=== PATIENT | female | born 1930 | race Caucasian/White ===

== ENCOUNTER 2021-01-12 14:01 | Inpatient (IN) | payer MEDICARE, BC ==
[2021-01-12] MEDS ORDERED: Ondansetron PF 4 MG/2 ML Vial IVP PRN (19:14)
[2021-01-12] MEDS ORDERED: Dextrose 5% in Water 1,000 ML IV PRN (19:14)
[2021-01-12] MEDS ORDERED: Calcium Carbonate 500 MG ChewTAB PO PRN (19:14)
[2021-01-12] MEDS ORDERED: Dextrose 50% Abboject 50 ML SYRINGE SLOW IVP PRN (19:14)
[2021-01-12] MEDS ORDERED: HumaLOG 300 UNITS/3 ML VIAL SC PRN ×2 (19:18)
[2021-01-12 19:29] VITALS: BMI 21.3
[2021-01-12] MEDS ORDERED: Digoxin 0.25 MG TAB PO SCH (19:45)
[2021-01-12] MEDS ORDERED: Albuterol 200 PUFF (6.7GM INHALER) INH PRN (19:48)
[2021-01-12 21:04] LABS: Free T4 (Free Thyroxine) 1.11 ng/dL (0.70-1.48)
[2021-01-12] MEDS: Atorvastatin Calcium 10 MG TAB PO SCH (21:05)
[2021-01-12] MEDS: Digoxin 0.25 MG TAB PO SCH (21:06)
[2021-01-13] MEDS ORDERED: hydrALAZINE 20 MG/ML VIAL SLOW IVP PRN (00:16)
[2021-01-13] MEDS ORDERED: Carvedilol 6.25 MG TAB PO SCH (00:30)
[2021-01-13] MEDS ORDERED: diphenhydrAMINE 25 MG CAP PO SCH (00:30)
[2021-01-13 04:38] LABS: Albumin 3.5 g/dL (3.4-4.8)
[2021-01-13 04:39] LABS: Chloride 87 mmol/L (98-107); Potassium 4.4 mmol/L (3.5-5.1); Sodium 126 mmol/L (136-145)
[2021-01-13 04:40] LABS: Calcium 8.6 mg/dL (7.8-10.44); Glucose 143 mg/dL (83-110)
[2021-01-13 04:41] LABS: Globulin 3.1 g/dL (2.4-3.5); Protein, Total 6.6 g/dL (5.8-8.1)
[2021-01-13 04:42] LABS: Bilirubin, Total 0.7 mg/dL (0.2-1.2); Carbon Dioxide 27 mmol/L (23-31)
[2021-01-13 04:44] LABS: Calc. Creatinine Clearance 40 mL/min (70-130)
[2021-01-13 04:45] LABS: BUN (Urea Nitrogen) 13 mg/dL (9.8-20.1)
[2021-01-13 04:46] LABS: ALT (SGPT) 19 U/L (8-55); AST (SGOT) 33 U/L (5-34)
[2021-01-13 04:48] LABS: Anion Gap 16 mmol/L (10-20)
[2021-01-13 04:57] LABS: Alkaline Phosphatase 78 U/L (40-110)
[2021-01-13 05:11] LABS: #Eosinphils 0.1 thou/uL (0.0-0.7); #Lymphocytes 0.7 thou/uL (1.20-3.40); #Neutrophils 10.9 thou/uL (1.40-6.50); %Basophils 0.1 % (0.0-1.0); %Eosinophils 0.4 % (0.0-10.0); %Lymphocytes 5.3 % (21.0-51.0); %Monocytes 7.6 % (0.0-10.0); %Neutrophils 86.6 % (42.0-75.0); Anisocytosis SLIGHT = 6-15 cells (100X) (0-5/hpf); Elliptocytes SLIGHT = 2-5 cells (100X) (0-1/hpf); Hemoglobin 10.2 g/dL (12.0-16.0); MDiff Complete? YES; Mean Corpuscular HGB CONC 30.2 g/dL (32.0-36.0); Mean Corpuscular Hemoglobin 21.1 pg (27.0-31.0); Mean Corpuscular Volume 69.9 fL (78.0-98.0); Mean Platelet Volume 9.5 fL (7.4-10.4); Microcytosis SLIGHT = 6-15 cells (100X) (0-5/hpf); Platelet Count 289 thou/uL (130-400); RBC Distribution Width 16.8 % (11.5-14.5); Red Blood Cell (RBC) Count 4.85 mill/uL (4.20-5.40); White Blood Cell (WBC) Count 12.5 thou/uL (4.8-10.8)
[2021-01-13] MEDS: Levothyroxine Sodium 100 MCG TAB PO SCH (05:48)
[2021-01-13] MEDS: Acetaminophen 325 MG TAB PO PRN ×3 (05:49→18:06)
[2021-01-13] MEDS: Mometasone 100 MCG/PUFF (1 INHALER) INH SCH ×2 (08:03→18:25)
[2021-01-13] MEDS: Spironolactone 25 MG TAB PO SCH (08:34)
[2021-01-13] MEDS: Carvedilol 6.25 MG TAB PO SCH ×2 (08:34→16:27)
[2021-01-13] MEDS: Digoxin 0.25 MG TAB PO SCH (08:34)
[2021-01-13] MEDS: Furosemide 40 MG TAB PO SCH (08:34)
[2021-01-13] MEDS ORDERED: Alogliptin 25 MG TAB PO SCH (09:00)
[2021-01-13] MEDS ORDERED: Rivaroxaban 10 MG TAB PO SCH ×3 (09:00→21:00)
[2021-01-13] MEDS ORDERED: Non-Formulary Item 1 EACH (Fluticasone/Umeclidin/Vilanter [Trelegy Ellipta 100-62.5-25] 1 INH SCH (09:00)
[2021-01-13] MEDS ORDERED: FLU VACC QS2021-22(65YR UP)/PF 240 MCG/0.7 ML SYRINGE IM ONE (09:00)
[2021-01-13] MEDS: cefTRIAXone\\ROCEPHIN 1 GM in Sodium Chloride 0.9% 100 ML IVPB SCH (10:57)
[2021-01-13] MEDS: Nateglinide 120 MG TAB PO SCH ×2 (11:05→18:04)
[2021-01-13] MEDS: traMADol HCl 50 MG TAB PO PRN ×2 (12:39→16:27)
[2021-01-13 13:50] LABS: Iron 18 ug/dL (50-170); Iron Binding Capacity, Total 434 mcg/dL (265-497); Transferrin, Serum 347 mg/dL (173-360)
[2021-01-13] MEDS ORDERED: Ferrous Sulfate 325 MG TAB PO SCH (16:45)
[2021-01-13] MEDS ORDERED: metFORMIN XR 500 MG TAB PO SCH (17:00)
[2021-01-13] MEDS: Ondansetron ODT 4 MG TAB PO PRN (17:15)
[2021-01-13] MEDS: Ferrous Sulfate 325 MG TAB PO SCH (18:07)
[2021-01-13] MEDS: Atorvastatin Calcium 10 MG TAB PO SCH (20:34)
[2021-01-14] MEDS: Levothyroxine Sodium 100 MCG TAB PO SCH (05:22)
[2021-01-14 05:59] LABS: ALT (SGPT) 62 U/L (8-55); AST (SGOT) 74 U/L (5-34); Albumin 3.2 g/dL (3.4-4.8); Alkaline Phosphatase 68 U/L (40-110); Anion Gap 15 mmol/L (10-20); BUN (Urea Nitrogen) 17 mg/dL (9.8-20.1); Bilirubin, Total 0.5 mg/dL (0.2-1.2); Calc. Creatinine Clearance 37 mL/min (70-130); Calcium 8.3 mg/dL (7.8-10.44); Carbon Dioxide 27 mmol/L (23-31); Chloride 86 mmol/L (98-107); Glucose 125 mg/dL (83-110); Potassium 4.4 mmol/L (3.5-5.1); Protein, Total 6.2 g/dL (5.8-8.1); Sodium 124 mmol/L (136-145)
[2021-01-14] MEDS: Ondansetron ODT 4 MG TAB PO PRN (07:52)
[2021-01-14] MEDS: Spironolactone 25 MG TAB PO SCH (07:54)
[2021-01-14] MEDS: Furosemide 40 MG TAB PO SCH (07:54)
[2021-01-14] MEDS: Carvedilol 6.25 MG TAB PO SCH ×2 (07:55→16:00)
[2021-01-14] MEDS: Ferrous Sulfate 325 MG TAB PO SCH (07:55)
[2021-01-14] MEDS: Nateglinide 120 MG TAB PO SCH ×3 (07:56→17:06)
[2021-01-14] MEDS: Alogliptin 6.25 MG TAB PO SCH (07:57)
[2021-01-14] MEDS: Mometasone 100 MCG/PUFF (1 INHALER) INH SCH ×2 (08:17→18:25)
[2021-01-14 08:20] LABS: #Lymphocytes 0.6 thou/uL (1.20-3.40); #Monocytes 1.3 thou/uL (0.11-0.59); #Neutrophils 10.8 thou/uL (1.40-6.50); %Eosinophils 0.3 % (0.0-10.0); %Lymphocytes 4.7 % (21.0-51.0); %Monocytes 10.2 % (0.0-10.0); %Neutrophils 84.9 % (42.0-75.0); Hemoglobin 9.9 g/dL (12.0-16.0); Mean Corpuscular HGB CONC 31.1 g/dL (32.0-36.0); Mean Corpuscular Hemoglobin 21.7 pg (27.0-31.0); Mean Corpuscular Volume 69.7 fL (78.0-98.0); Mean Platelet Volume 9.1 fL (7.4-10.4); Platelet Count 306 thou/uL (130-400); RBC Distribution Width 16.8 % (11.5-14.5); Red Blood Cell (RBC) Count 4.57 mill/uL (4.20-5.40); White Blood Cell (WBC) Count 12.8 thou/uL (4.8-10.8)
[2021-01-14 08:28] LABS: INR-International Normal Ratio 1.3; Prothrombin Time 16.7 sec (12.0-14.7)
[2021-01-14 08:29] LABS: PTT 49.2 sec (22.9-36.1)
[2021-01-14] MEDS ORDERED: Heparin 1,000 UNITS/ML VIAL CATH SCH (10:00)
[2021-01-14] MEDS: cefTRIAXone\\ROCEPHIN 1 GM in Sodium Chloride 0.9% 100 ML IVPB SCH (11:07)
[2021-01-14] MEDS ORDERED: Promethazine 25 MG TAB PO PRN (14:44)
[2021-01-14 15:34] LABS: Digoxin 2.33 ng/mL (0.8-2.0)
[2021-01-14 15:46] LABS: RBC Count-Automated (BF) 1434 /cu.mm; WBC/Nucleated-Auto (BF) 971 /cu.mm
[2021-01-14 15:53] LABS: Fluid, pH - Pleural Fld Greater than 7.50 (7.60 - 7.66)
[2021-01-14] MEDS ORDERED: Ondansetron ODT 4 MG TAB PO SCH (16:00)
[2021-01-14] MEDS: Ondansetron ODT 4 MG TAB PO SCH ×3 (16:00→22:44)
[2021-01-14 16:26] LABS: BF Color Yellow; Body Fluid Source Pleural Fluid; Clarity Hazy (Clear); Tube # EDTA
[2021-01-14 16:38] LABS: BF Segmented Neutrophils 9 %; Cell Count Non Hematic 27 %; Lymphocytes 64 %
[2021-01-14] MEDS ORDERED: Rivaroxaban 15 MG TAB PO SCH (17:00)
[2021-01-14] MEDS ORDERED: Melatonin 3 MG TAB PO PRN (20:26)
[2021-01-14] MEDS: Atorvastatin Calcium 10 MG TAB PO SCH (20:55)
[2021-01-15] MEDS: Ondansetron ODT 4 MG TAB PO SCH ×4 (04:01→14:39)
[2021-01-15] MEDS ORDERED: Lorazepam 1 MG TAB PO SCH (04:30)
[2021-01-15] MEDS ORDERED: hydrOXYzine 10 MG TAB PO SCH (05:00)
[2021-01-15 05:13] LABS: #Lymphocytes 0.7 thou/uL (1.20-3.40); #Neutrophils 9.2 thou/uL (1.40-6.50); %Basophils 0.2 % (0.0-1.0); %Eosinophils 0.4 % (0.0-10.0); %Lymphocytes 5.9 % (21.0-51.0); %Monocytes 9.1 % (0.0-10.0); %Neutrophils 84.3 % (42.0-75.0); Hemoglobin 9.3 g/dL (12.0-16.0); Mean Corpuscular HGB CONC 30.5 g/dL (32.0-36.0); Mean Corpuscular Hemoglobin 21.4 pg (27.0-31.0); Mean Corpuscular Volume 70.3 fL (78.0-98.0); Mean Platelet Volume 9.6 fL (7.4-10.4); Platelet Count 282 thou/uL (130-400); RBC Distribution Width 16.8 % (11.5-14.5); Red Blood Cell (RBC) Count 4.34 mill/uL (4.20-5.40); White Blood Cell (WBC) Count 10.9 thou/uL (4.8-10.8)
[2021-01-15] MEDS: Levothyroxine Sodium 100 MCG TAB PO SCH (05:29)
[2021-01-15 05:33] LABS: ALT (SGPT) 44 U/L (8-55); AST (SGOT) 41 U/L (5-34); Albumin 3.4 g/dL (3.4-4.8); Alkaline Phosphatase 67 U/L (40-110); Anion Gap 15 mmol/L (10-20); BUN (Urea Nitrogen) 16 mg/dL (9.8-20.1); Bilirubin, Total 0.5 mg/dL (0.2-1.2); Calc. Creatinine Clearance 35 mL/min (70-130); Calcium 8.2 mg/dL (7.8-10.44); Carbon Dioxide 28 mmol/L (23-31); Chloride 83 mmol/L (98-107); Globulin 2.9 g/dL (2.4-3.5); Glucose 123 mg/dL (83-110); Potassium 4.3 mmol/L (3.5-5.1); Protein, Total 6.3 g/dL (5.8-8.1); Sodium 122 mmol/L (136-145)
[2021-01-15] MEDS: Mometasone 100 MCG/PUFF (1 INHALER) INH SCH (07:16)
[2021-01-15] MEDS ORDERED: Rivaroxaban 15 MG TAB PO SCH (08:00)
[2021-01-15] MEDS: Nateglinide 120 MG TAB PO SCH ×2 (08:02→11:08)
[2021-01-15] MEDS: Ferrous Sulfate 325 MG TAB PO SCH (08:03)
[2021-01-15] MEDS: Spironolactone 25 MG TAB PO SCH (08:03)
[2021-01-15] MEDS: Alogliptin 6.25 MG TAB PO SCH (08:03)
[2021-01-15] MEDS: Carvedilol 6.25 MG TAB PO SCH (08:04)
[2021-01-15 08:08] VITALS: BP 152/67; TEMP 97.9
[2021-01-15] MEDS ORDERED: Polyethylene Glycol 3350 17 GM Packet PO PRN (08:25)
[2021-01-15] MEDS ORDERED: Sodium Chloride 1 GM TAB PO SCH ×2 (09:00→15:00)
[2021-01-15 09:22] LABS: Digoxin 1.74 ng/mL (0.8-2.0)
[2021-01-15] MEDS ORDERED: Digoxin 0.125 MG TAB PO SCH (10:45)
[2021-01-15] MEDS ORDERED: metFORMIN XR 500 MG TAB PO SCH (17:00)
[2021-01-16] MEDS ORDERED: Digoxin 0.125 MG TAB PO SCH (09:00)
== END 2021-01-15 15:37 | disposition home or self-care (01) | DRG 181 ==
LOC: ONC 17:38
PROVIDERS: ADMIT Family Medicine; ATTEND Family Medicine
PROC: 0W993ZZ Drainage of Right Pleural Cavity, Percutaneous Approach (ICD-10-PCS; principal; 2021-01-14)
DX: C34.11 Malignant neoplasm of upper lobe, right bronchus or lung (principal); E22.2 Syndrome of inappropriate secretion of antidiuretic hormone; C78.7 Secondary malignant neoplasm of liver and intrahepatic bile duct; C79.02 Secondary malignant neoplasm of left kidney and renal pelvis; N39.0 Urinary tract infection, site not specified; I50.22 Chronic systolic (congestive) heart failure; I48.20 Chronic atrial fibrillation, unspecified; J91.0 Malignant pleural effusion; D53.9 Nutritional anemia, unspecified; E03.9 Hypothyroidism, unspecified; E78.5 Hyperlipidemia, unspecified; I11.0 Hypertensive heart disease with heart failure; I08.3 Combined rheumatic disorders of mitral, aortic and tricuspid valves; J44.9 Chronic obstructive pulmonary disease, unspecified; R11.0 Nausea; T46.0X5A Adverse effect of cardiac-stimulant glycosides and drugs of similar action, initial encounter; Z88.6 Allergy status to analgesic agent; Z99.81 Dependence on supplemental oxygen; Z88.5 Allergy status to narcotic agent; Z88.8 Allergy status to other drugs, medicaments and biological substances; Z79.899 Other long term (current) drug therapy; Z79.84 Long term (current) use of oral hypoglycemic drugs; Z79.01 Long term (current) use of anticoagulants; Z79.51 Long term (current) use of inhaled steroids; Z79.890 Hormone replacement therapy; Z95.0 Presence of cardiac pacemaker; Z87.891 Personal history of nicotine dependence
CPT/HCPCS: 36415; 36416; 51701; 71045; 71046; 71260; 80053; 80162; 81003; 81015; 82150; 82728; 82945; 83540; 83550; 83605; 83615; 83735; 83880; 83930; 83935; 83986; 84157; 84300; 84439; 84443; 84466; 84478; 84481; 84484; 85025; 85060; 85610; 85730; 87040; 87070; 87077; 87086; 87116; 87186; 87205; 87206; 88112; 88305; 88341; 88342; 89051; 93005; 93010; 93306; 96365; 96366; 96367; 96375; J0696; J1642; J1815; J2405; J3370; J3490; J7620; Q0162; U0002